=== PATIENT | male | born 1965 | race Caucasian/White ===

== ENCOUNTER → 2020-10-28 13:39 | Outpatient (BNVA) | payer MEDICAID, SELFPAY | PROVIDERS: PCP Family Medicine; Visit Provider Internal Medicine | DX: M86.60 Other chronic osteomyelitis, unspecified site (principal) | CPT/HCPCS: 99212 ==

== ENCOUNTER 2025-05-10 08:10 | Outpatient (REF) | payer MEDICAID, SELFPAY ==
--- OUTSIDE RECORDS SUMMARY | 2025-05-10 08:20 | XMS_ITS | Encounter Summary ---
Author Organization [employer] Address [address] [facility] [address] [place] [address] Care Team Providers Care Magazine Supervisor Name Role Phone Jeremy Mae MD Primary Care Prov ider Reason for Visit * Reason Onset Date Comments Nurse Triage 03/10/2025 Encounter Details Date Type Department Care Team (Late st Contact Info) Description 03/10/2025 Telephone [facility] [address] [place], [place] [phone] Jeremy Mae MD [address] [place] [address] Nurse Triage Social History Tobacco Use Types Packs/Day Years Used Date Smoking Tobacco: Every Day Cigarettes 0.5 35 Smokeless Tobacco: Never Alcohol Use Standard Drinks/Week Comments Never 0 (1 standard drink = 0.6 oz pur e alcohol) Sex and Gender Information Value Date Recorded Sex Assigned at Male 09/24/2022 10:14 AM EDT Legal Sex Male 10:14 AM EDT Gender Identity Male 09/24/2022 10:14 AM EDT Sexual Orientation Choose not to disclose 2021 10:14 AM EDT documented as of this encounter Miscellaneous Notes * Telephone Encounter - Rosemarie Garcia RN - 03/10/2025 12:17 PM EDT Triage call Pt reports left elbow pain for 2 weeks now. Neg for swelling/redness, or rash. Pt denies injury and has not had this before. Pt is unable to bend arm at elbow and can't lift arm to above shoulder. Pt has not taken any thing for pain and is advised to take tylenol which Pt has at home fol lowing bottle direction and try ice/heat to see if effective for relief of pain, also to keep arm supported with pillow at rest. Pt agrees with disposition and home care advised. ASK apt 03/11/25 @ 945am with Dr. Glass. Insurance ia verified as active prior to booking. Protocol Used: Elbow Pain (Adult) Protocol-Based Disposition: See in Office or Video Visit within 3 Days Video visit not offered Positive Triage Questions: * Moderate pain (e.g., interferes with normal activities) and present > 3 days * Patient wants to be seen * All higher-acuity triage questions were negative Care Advice Discussed: * Reassurance and Education - Elbow Pain * Pain Medicines * Pain Medicines - Extra Notes and Warnings * Expected Course * Reasons To Call Back - Moderate pain (such as interferes with normal activities) lasts over 3 days - Mild pain lasts over 7 days - Swollen joint or fever occurs - You become worse * Use a Cold Pack for Pain * Use Heat After 48 Hours for Pain * Telephone Encounter - Ruma Smith - 03/10/2025 11:53 AM EDT Symptom: Elbow Pain - Not From Injury Outcome: Schedule an appointment to be seen within 24 hours Reason: Caller denied all higher acuity questions The caller accepted this outcome. documented in this encounter Plan of Treatment Upcoming Encounters Date Type Department Care Team (Late st Contact Info) Description 07/05/2025 11:15 AM EDT Telemedicine [facility] [address] [place] [address] Jeremy Mae MD [address] [place] [address] documented as of this encounter Visit Diagnoses Not on filedocumented in this encounter Care Teams Magazine Supervisor Relationship Specialty Start Date End Date Jeremy Mae MD [address] [place] [address] PCP - General Internal Medicine 04/04/20 documented as of this encounter
[2025-05-10 14:06] LABS: MANUAL DIFF FLAG NO
[2025-05-10 14:13] LABS: Basophils Percent Auto 0.4 % (0-2); Eosinophils Absolute Auto 0.2 X10*3/uL (0.0-0.4); Eosinophils Percent Auto 2.4 % (0-4); Hematocrit 42.6 % (42.0-52.0); Hemoglobin 14.5 g/dl (14.0-18.0); Imm Gran Abs Auto 0.02 X10*3/uL (0.00-0.03); Imm Gran Pct Auto 0.2 % (0.0-0.4); Lymphocytes Absolute Auto 3.7 X10*3/uL (1.2-4.9); Lymphocytes Percent Auto 38.5 % (20-40); Mean Corpuscular Hemoglobin 30.2 pg (27.0-33.0); Mean Corpuscular Volume 88.8 fL (80.0-98.0); Mean Platelet Volume 9.7 fL (9.4-12.4); Monocytes Absolute Auto 0.6 X10*3/uL (0.1-1.2); Monocytes Percent Auto 6.5 % (2-11); Platelet Count 319 X10*3/uL (160-400); Red Cell Distribution Width 13.7 % (11.0-16.0); White Blood Count 9.6 X10*3/uL (4.8-10.8)
[2025-05-10 14:21] LABS: Estimated Average Glucose 108 mg/dL; Hemoglobin A1c % 5.4 % (<6.0)
[2025-05-10 14:33] LABS: Alanine Aminotransferase 28 U/L (0-40); Albumin Level 4.2 g/dL (3.5-5.0); Alkaline Phosphatase 115 U/L (39-117); Anion Gap 10 (12-20); Aspartate Amino Transferase 26 U/L (5-37); Bilirubin Total 0.3 mg/dL (0.0-1.0); Blood Urea Nitrogen 16 mg/dL (9-16); Calcium 9.5 mg/dL (8.4-10.2); Carbon Dioxide 25 mmol/L (22-29); Chloride 110 mmol/L (96-108); Cholesterol 156 mg/dL (<200); Estimated Glomerular Filt Rate > 60; Glucose Random 93 mg/dL (60-115); HDL Cholesterol 32 mg/dL (>40); LDL Cholesterol Calculated 94 mg/dL (<100); Potassium 4.4 mmol/L (3.3-5.1); Sodium 141 mmol/L (135-145); Total Protein 7.2 g/dL (6.5-8.0); Triglycerides 152 mg/dL (<150)
[2025-05-10 14:49] LABS: TSH reflex Free T4 2.65 uIU/mL (0.32-4.0)
[2025-05-11 03:50] LABS: HIV AB/AG Nonreactive (Nonreactive); HIV Num 1 0.07 S/CO (0.00-0.99); ~Hepatitis C Antibody Nonreactive (Nonreactive)
== END 2025-05-10 08:11 | disposition home or self-care (01) ==
LOC: HO.CHCLDS 08:10
PROVIDERS: Visit Provider Internal Medicine
DX: M86.669 Other chronic osteomyelitis, unspecified tibia and fibula (principal)
CPT/HCPCS: 36415; 80053; 80061; 83036; 84443; 85025; 86803; 87389

== ENCOUNTER 2025-07-05 13:13 | Outpatient (REF) | payer MEDICAID, SELFPAY ==
--- OUTSIDE RECORDS SUMMARY | 2025-07-05 11:15 | XMS_ITS | Encounter Summary ---
Author Organization [employer] Address [address] [facility] [address] [place] [address] Care Team Providers Care Merchandise Processor Name Role Phone Jeremy Mae MD Primary Care Prov ider Encounter Details Date Type Department Care Team ([facility] st Contact Info) Description 07/05/2025 11:15 AM EDT Telemedicine [facility] MED [facility] PEDS [address] [place], [place] [phone] Jeremy Mae MD [address] [place], [place] [phone] Prostate cancer screening (Primary Dx); Lower urinary tract symptoms (LUTS) Social History Tobacco Use Types Packs/Day Years Used Date Smoking Tobacco: Every Day Cigarettes 0.5 35 Smokeless Tobacco: Never Alcohol Use Standard Drinks/Week Comments Never 0 (1 standard drink = 0.6 oz pur e alcohol) Depression Answer Date Recorded Patient Health Questionnaire-9 Score 0 07/05/2025 Patient Health Questionnaire-9 Score 0 07/05/2025 Last PHQ-9: Questionnaire Data Not on file 0 07/05/2025 Depression Answer Date Recorded Patient Health Questionnaire-2 Score 0 07/05/2025 Sex and Gender Information Value Date Recorded Sex Assigned at Male 09/24/2022 10:14 AM EDT Legal Sex Male 10:14 AM EDT Gender Identity Male 09/24/2022 10:14 AM EDT Sexual Orientation Choose not to disclose 2021 10:14 AM EDT documented as of this encounter Functional Status * Over the past 2 weeks, how often have you been bothered by any of the following problems? Question Answer Date of Assessment Author Patient Health Questionnaire-2 Score 0 06/25 11:16 AM Robyn Hill [place] * Little interest or pleasure in doing things Answer Date of Assessment Author Not at all 07/05/2025 11:16 AM Domenico Hill [place] * Feeling down, depressed, or hopeless Answer Date of Assessment Author Not at all 07/05/2025 11:16 AM Domenico Hill [place] * Trouble falling or staying asleep, or sleeping too much Answer Date of Assessment Author Not at all 07/05/2025 11:16 AM Domenico Hill [place] * Feeling tired or having little energy Answer Date of Assessment Author Not at all 07/05/2025 11:16 AM Domenico Hill [place] * Poor appetite or overeating Answer Date of Assessment Author Not at all 07/05/2025 11:16 AM Domenico Hill [place] * Feeling bad about yourself - or that you are a failure or have let yourself or your family down Answer Date of Assessment Author Not at all 07/05/2025 11:16 AM Domenico Hill [place] * Trouble concentrating on things, such as reading the newspaper or watching television Answer Date of Assessment Author Not at all 07/05/2025 11:16 AM Domenico Hill [place] * Moving or speaking so slowly that other people could have noticed? Or the opposite - being so fidgety or restless that you have been moving around a lot more than usual. Answer Date of Assessment Author Not at all 07/05/2025 11:16 AM Domenico Hill [place] * Thoughts that you would be better off or hurting yourself in some way Answer Date of Assessment Author Not at all 07/05/2025 11:16 AM Domenico Hill [place] * Patient Health Questionnaire-9 Score Answer Date of Assessment Author 0 07/05/2025 11:16 AM Domenico Hill [place] documented as of this encounter Progress Notes * Jeremy Gallardo MD - 07/05/2025 11:15 AM EDT Subjective Patient ID: Titus Milligan is a 59 y.o. male who presents for No chief complaint on file.. Difficulty Urinating This is a new problem. The current episode started more than 1 month ago. The patient is experiencing no pain. There has been no fever. Associated symptoms include frequency. Review of Systems Genitourinary: Positive for dysuria and frequency. Objective Physical Exam Neurological: General: No focal deficit present. Mental Status: He is oriented to person, place, and time. Psychiatric: Mood and Affect: Mood normal. Behavior: Behavior normal. Assessment/Plan Problem List Items Addressed This Visit None Visit Diagnoses Prostate cancer screening - Primary Relevant Orders PSA, Total With Reflex to PSA, Free Lower urinary tract symptoms (LUTS) Will check prostate for BPH/cancer and will start on flomax, call back If not improving documented in this encounter Plan of Treatment Scheduled Orders Name Type Priority Associated Diagnoses Orde r Schedule PSA, Total With Reflex to PSA, Free Lab Routine Prostate cancer screening Expected: 07/05/2025 (Approximate), Expires: 07/05/2026 documented as of this encounter Visit Diagnoses Diagnosis Prostate cancer screening- Primary Special screening for malignant neoplasm of prostate Lower urinary tract symptoms (LUTS) documented in this encounter Additional Health Concerns Assessment Noted Time PHQ-9 Depression Total Score: 0 07/05/20 25 11:16 AM EDT documented as of this encounter Care Teams Merchandise Processor Relationship Specialty Start Date End Date Jeremy Mae MD [address] [place] [address] PCP - General Internal Medicine 04/04/20 documented as of this encounter
[2025-07-05 16:06] LABS: PSA,Total (Free>4and<10) 3.49 ng/mL (0.00-4.00)
== END 2025-07-05 13:14 | disposition home or self-care (01) ==
LOC: HO.CHCLDS 13:13
PROVIDERS: Visit Provider Internal Medicine
DX: Z12.5 Encounter for screening for malignant neoplasm of prostate (principal)
CPT/HCPCS: 36415; 84153

== ENCOUNTER 2025-07-12 15:10 | Outpatient (AMB) | payer MEDICAID, SELFPAY ==
[2025-07-12 15:37] VITALS: PULSE 88; O2SAT 99
--- NOTE | 2025-07-12 15:37 | A.OFFVIS_ITS ---
Vital Signs 3 07/12/25 15:37 Weight 179 lb Pulse 88 Pulse Source Pulse Oximeter Pulse Oximetry (%) 99 Oxygen Delivery Method Room Air Intake Visit Reasons: [facility] reff/ok per osteomyelitis Professor Of Art History Required: Yes Professor Of Art History Services: Professor Of Art History Present Professor Of Art History Name: lisa martino CMA Allergies No Known Allergies (No Known Allergies*) Allergy (Verified 07/12/25 15:37) HPI HPI [facility] reff/ok per osteomyelitis: Details: I had seen him in 2019. He has chronic OM left leg. He has no leakage on Cipro and my last script was 2019.He has been getting Dr Turner. [facility] Medical History Nicotine dependence, cigarettes, uncomplicated Chronic osteomyelitis (~1992) Surgical History History of lithotripsy Review of Systems Const All systems reviewed & are unremarkable except as noted in HPI and below Physical Exam Vital Signs: Last Vital Signs Pulse 88 07/12/25 15:37 Pulse Ox 99 07/12/25 15:37 Oxygen Delivery Method Room Air 07/12/25 15:37 Const Other: General: cooperative Orientation/consciousness: patient oriented x3 HEENT Head: Yes normal to inspection Mouth: Normal oral and palatal mucosa present Eyes General: appearance normal, both eyes and all related structures Pupils: Equal, round and reactive pupils present Resp Effort & Inspection: normal respiratory effort Cardio Rate: regular rate Rhythm: regular rhythm GI Palpation (GI): Soft to palpation and nontender General: Yes no CVA tenderness Back/Spine/Pelvis Back: no CVA tenderness Skin General skin exam: no rashes or lesions noted Neuro General: patient oriented x3 Cranial nerves: Yes CN's II-XII intact bilaterally and Yes Equal, round and reactive pupils present Extrem General: Yes normal to inspection Psych Appearance: grossly normal Assessment & Plan Assessment & Plan (1) Chronic osteomyelitis: Onset Date: ~1992 Comment: 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 Code(s): M86.60 - Other chronic osteomyelitis, unspecified site Category: Medical Plan: One year supply, 90 day and three refill. See in one year. Medications: New 2 ciprofloxacin HCl (Cipro) 500 mg PO DAILY 90 tabs 3RF 90 days Coding Level of Care Code Est Pt Level 3 (40853) Diagnoses Chronic osteomyelitis M86.60
--- OUTSIDE RECORDS SUMMARY | 2025-07-12 15:45 | XMS_ITS | Encounter Summary ---
Author Organization [employer] Address [address] [facility] 7t [place] [address] Care Team Providers Care Automation Tender Name Role Phone Jeremy Mae MD Primary Care Prov ider Reason for Visit * Reason Onset Date Comments Nurse Triage 03/10/2025 Encounter Details Date Type Department Care Team (Late st Contact Info) Description 03/10/[address] [facility] MED & PEDS [address] [place], [place] [phone] Jeremy Mae MD [address] [place] [address] Nurse Triage Social History Tobacco Use Types [...] documented in this encounter Plan of Treatment Not on file documented as of this encounter Visit Diagnoses Not on filedocumented in this encounter Care Teams Automation Tender Relationship Specialty Start Date End Date Jeremy Mae MD [address] [place] [id number] PCP - General Internal Medicine 04/04/20 documented as of this encounter
== END 2025-07-12 16:25 | disposition home or self-care (01) ==
LOC: HO.HID 15:10
PROVIDERS: PCP Family Medicine; Visit Provider Internal Medicine
DX: M86.60 Other chronic osteomyelitis, unspecified site (principal)
CPT/HCPCS: 99213

== ENCOUNTER → 2025-07-12 | Outpatient (BNVA) | payer MEDICAID, SELFPAY | PROVIDERS: PCP Family Medicine; Visit Provider Internal Medicine | DX: M86.662 Other chronic osteomyelitis, left tibia and fibula (principal); B96.5 Pseudomonas (aeruginosa) (mallei) (pseudomallei) as the cause of diseases classified elsewhere; Z79.2 Long term (current) use of antibiotics | CPT/HCPCS: 99212 ==

== ENCOUNTER 2025-08-25 11:39 | Outpatient (REF) | payer MEDICAID, SELFPAY ==
--- NOTE | ~2025-08-25 | XR_ITS ---
EXAMINATION: XR ABDOMEN 1 VIEW (KUB) HISTORY: constipation COMPARISON: There are no prior studies available for comparison. FINDINGS: Two supine views of the abdomen are submitted. The bowel gas pattern is unremarkable, without evidence of mechanical obstruction. There is a moderate amount of stool throughout the colon. There is a 3 mm calcification overlying the lower pole of the left renal shadow. There are no abnormal soft tissue masses. The patient is status post internal fixation of the left hip. There is bilateral hip joint space narrowing. XR/XR KUB IMPRESSION: Moderate amount of stool throughout the colon. Electronically signed by: Zohaib Rodriguez MD 08/25/2025 12:25 PM EDT
--- OUTSIDE RECORDS SUMMARY | 2025-08-25 10:45 | XMS_ITS | Encounter Summary ---
Author Organization [employer] Address [address] [facility] 7 [place] [address] Care Team Providers Care Solar Energy Specialist Name Role Phone Jeremy Mae MD Primary Care Prov ider Reason for Visit * Reason Comments Constipation Abdominal Pain Encounter Details Date Type Department Care Team ([facility] Contact Info) Description 08/25/2025 10:45 AM EDT Office Visit [facility] MED & PEDS [address] [place], [place] [phone] Chandrakant Glass MD [address] [place] [address] Other constipation (Primary Dx); Other hemorrhoids; Herpes zoster without complication Social History Tobacco Use Types Packs/Day Years [...] AM EDT documented as of this encounter Last Filed Vital Signs Vital Sign Reading Time Taken Comments Blood Pressure 132/81 08/25/2025 10:41 AM EDT Pulse 58 08/25/2025 10:41 AM EDT Temperature - - Respiratory Rate 20 08/25/2025 10:41 AM EDT Oxygen Saturation 99% 08/25/2025 10:41 AM EDT Inhaled Oxygen Concentration - - Weight 79.4 kg (175 lb) 08/25/2025 10:41 AM EDT Height 170.2 cm (5' 7 ) 08/25/2025 10:41 AM EDT Body Mass Index 27.41 08/25/2025 10:41 AM EDT documented in this encounter Progress Notes * Chandrakant Glass MD - 08/25/2025 10:45 AM EDT MARIA A Milligan is a 59 y.o. male who presents for Constipation and Abdominal Pain. Constipation This is a new problem. The current episode started 1 to 4 weeks ago. The problem has been waxing and waning since onset. His stool frequency is 4 to 5 times per week. The stool is described as blood coated. The patient is not on a high fiber diet. He Does not exercise regularly. There has Not been adequate water intake. Associated symptoms include abdominal pain, hemorrhoids and weight loss. Perti nent negatives include no anorexia, back pain, bloating, diarrhea, difficulty urinating, fecal incontinence, fever, flatus, hematochezia, melena, nausea, rectal pain or vomiting. He has tried nothingfor the symptoms. There is no history of abdominal surgery, endocrine disease, inflammatory bowel disease, irritable bowel syndrome, neurologic disease, neuromuscular disease, psychiatric history or radiation treatment. Abdominal Pain This is a new problem. The current episode started 1 to 4 weeks ago. The problem occurs intermittently. The pain is located in the LUQ and LLQ. The pain is at a severity of 4/10. The quality of the pain is colicky. The abdominal pain does not radiate. Associated symptoms include constipation and weight loss. Pertinent negatives include no anorexia, arthralgias, belching, diarrhea, fever, flatus, h ematochezia, melena, nausea or vomiting. The pain is aggravated by eating. The pain is relieved by Bowel movements. There is no history of abdominal surgery or irritable bowel syndrome. 2 weeks history of left upper quadrant and left lower quadrant abdominal pain. No associated fever.Patient eats pizza quite often which triggers the pain. Skin rash of the right buttock for over a week Problem List[1] Allergies[2] Medications Ordered Prior to Encounter[3] Review of Systems Constitutional: Positive for weight loss. Negative for fever. Gastrointestinal: Positive for abdominal pain, constipation and hemorrhoids. Negative for anorexia,bloating, diarrhea, flatus, hematochezia, melena, nausea, rectal pain and vomiting. Genitourinary: Negative for difficulty urinating. Musculoskeletal: Negative for arthralgias and back pain. OBJECTIVE Vitals: 08/25/25 1041 BP: 132/81 BP Location: Left arm Patient Position: Sitting BP Cuff Size: Adult Pulse: 58 Resp: 20 SpO2: 99% Weight: 175 lb (79.4 kg) Height: 5' 7 (1.702 m) Physical Exam Constitutional: General: He is not in acute distress. Appearance: Normal appearance. He is not ill-appearing, toxic-appearing or diaphoretic. Cardiovascular: Rate and Rhythm: Normal rate. Pulmonary: Effort: Pulmonary effort is normal. Abdominal: Palpations: Abdomen is soft. Tenderness: There is abdominal tenderness. Skin: Comments: 1) External hemorrhoid at 4 O'clock 2) erythematous patches w/ multiple small erosions by normal skin of the right buttock. Neurological: General: No focal deficit present. Mental Status: He is alert. Assessment/Plan Assessment/Plan Diagnoses and all orders for this visit: Other constipation Comments: Increase fluid intake High-fiber diet MiraLAX X-ray ordered. Patient will be called with results. Orders: - XR KUB and Upright 2 Views; Future - polyethylene glycol, PEG, 3350 (Miralax) 17 g packet; Take 17 g by mouth Once per day for 3 days. Other hemorrhoids Comments: Sitz bath Anusol as directed Orders: - hydrocortisone (Anusol-HC) 2.5 % rectal cream; Insert into the rectum 2 times daily. Herpes zoster without complication - mupirocin (Bactroban) 2 % ointment; Apply topically 3 times daily for 10 days. [1] Patient Active Problem List Diagnosis Chronic osteomyelitis of tibia (CMS/HCC) (HCC) Smoking Screening for colon cancer Screening for prostate cancer Encounter for screening for lung cancer Lateral epicondylitis of right elbow Encounter for smoking cessation counseling Seborrheic dermatitis [2] No Known Allergies [3] Current Outpatient Medications on File Prior to Visit Medication Sig Dispense Refill Acetaminophen 500 MG capsule Take 2 capsules by mouth every 8 (eight) hours if needed. ketoconazole (NIZOral) 2 % shampoo Apply topically 2 (two) times a week. 120 mL 3 meloxicam (Mobic) 15 MG tablet Take 1 tablet (15 mg) by mouth Once per day. 30 tablet 1 tamsulosin (Flomax) 0.4 MG 24 hr capsule Take 1 capsule (0.4 mg) by mouth Once per day. 30 capsule 2 varenicline (Chantix) 1 MG tablet Take 1 tablet (1 mg) by mouth 2 times daily. Take with full glassof water. 120 tablet 0 No current facility-administered medications on file prior to visit. documented in this encounter Plan of Treatment Not on file documented as of this encounter Procedures Procedure Name Priority Date/Time Associated Diagnosis Comments XR KUB AND UPRIGHT 2 VIEWS Routine 08/25/2025 12:02 PM EDT Other constipation documented in this encounter Results * XR KUB and Upright 2 Views (08/25/2025 12:02 PM EDT) Anatomical Region Laterality Modality Radiographic Puja ging 08/25/2025 12:0 2 PM EDT Narrative 08/25/2025 12:27 PM EDT [place] [address] XRay Report Signed Patient: Titus Milligan MR#: [id number] : 1965 Acct:[id number] Age/Sex: 59 / M ADM Date: 08/25/25 Loc: [facility] Attending Dr: Chandrakant Glass MD Ordering Physician: Chandrakant Glass MD Date of Service: 08/25/25 Procedure(s): XR KUB Accession Number(s): [id number] cc: Chandrakant Glass MD; Jeremy Mae MD Reason for Exam: constipation EXAMINATION: XR ABDOMEN 1 VIEW (KUB) HISTORY: constipation COMPARISON: There are no prior studies available for comparison. FINDINGS: Two supine views of the abdomen are submitted. The bowel gas pattern is unremarkable, without evidence of mechanical obstruction. There is a moderate amount of stool throughout the colon. There is a 3 mm calcification overlying the lower pole of the left renal shadow. There are no abnormal soft tissue masses. The patient is status post internal fixation of the left hip. There is bilateral hip joint space narrowing. XR/XR KUB IMPRESSION: Moderate amount of stool throughout the colon. Electronically signed by: Zohaib Rodriguez MD 08/25/2025 12:25 PM EDT RP Dictated By: Zohaib Rodriguez MD Signed By: <Electronically signed by Zohaib Rodriguez MD in OV> 08/25/25 1225 DD/ 1202 TD/TT: 08/25/25 1206 Manager Utilization: Procedure Note Donotuseinterpreter, Image - 08/25/2025 [place] [address] XRay Report Signed Patient: Titus Milligan AMR#: [id number] : 1965Acct:[id number] Age/Sex: 59 / MADM Date: 08/25/25 Loc: [facility] Attending Dr: Chandrakant Glass MD Ordering Physician: Chandrakant Glass MD Date of Service: 08/25/25 Procedure(s): XR KUB Accession Number(s): [id number] cc: Chandrakant Glass MD; Jeremy Mae MD Reason for Exam: constipation EXAMINATION: XR ABDOMEN 1 VIEW (KUB) HISTORY: constipation COMPARISON: There are no prior studies available for comparison. FINDINGS: Two supine views of the abdomen are submitted. The bowel gas pattern is unremarkable, without evidence of mechanical obstruction. There is a moderate amount of stool throughout the colon. There is a 3 mm calcification overlying the lower pole of the left renal shadow. There are no abnormal soft tissue masses. The patient is status post internal fixation of the left hip. There is bilateral hip joint space narrowing. XR/XR KUB IMPRESSION: Moderate amount of stool throughout the colon. Electronically signed by: Zohaib Rodriguez MD 08/25/2025 12:25 PM EDT RP Dictated By: Zohaib Rodriguez MD Signed By: <Electronically signed by Zohaib Rodriguez MD in OV> 08/25/25 1225 DD/ 1202 TD/TT: 08/25/25 1206 Manager Utilization: us Chandrakant Glass MD IMG XR PROCEDURES Final Res ult documented in this encounter Visit Diagnoses Diagnosis Other constipation- Primary Other hemorrhoids Herpes zoster without complication documented in this encounter Additional Health Concerns Assessment Noted Time PHQ-9 Depression Total Score: 0 07/05/20 25 11:16 AM EDT documented as of this encounter Care Teams Solar Energy Specialist Relationship Specialty Start Date End Date Jeremy Mae MD [address] [place] [id number] PCP - General Internal Medicine 04/04/20 documented as of this encounter
--- OUTSIDE RECORDS SUMMARY | 2025-08-25 13:14 | XMS_ITS | Clinical Summary ---
Author Organization [employer] Address [address] [facility] 7[address] [place] [address] Care Team Providers Care Specialty Trimmer Name Role Phone Jeremy Mae MD Primary Care Prov ider Allergies No known active allergies Medications Acetaminophen 500 MG capsule Take 2 capsules by mouth every 8 (eight) hours if needed. 1 Active meloxicam (Mobic) 15 MG tabletIndications: Lateral epicondylitis of right elbow Take 1 tablet (15 mg) by mouth Once per day. 30 tablet 1 5 03/11/20 26 Active varenicline (Chantix) 1 MG tablet Take 1 tablet (1 mg) by mouth 2 times daily. Take with full glass of water. 120 tablet 5 Active ketoconazole (NIZOral) 2 % shampoo Apply topically 2 (two) times a week. 120 mL 3 5 Active tamsulosin (Flomax) 0.4 MG 24 hr capsule Take 1 capsule (0.4 mg) by mouth Once per day. 30 capsule 2 5 Active polyethylene glycol, PEG, 3350 (Miralax) 17 g packetIndications: Other constipation Take 17 g by mouth Once per day for 3 days. 3 packet 5 08/28/20 25 Active hydrocortisone (Anusol-HC) 2.5 % rectal creamIndications:O ther hemorrhoids Insert into the rectum 2 times daily. 28 g 5 Active mupirocin (Bactroban) 2 % ointmentIndication s:Herpes zoster without complication Apply topically 3 times daily for 10 days. 22 g 5 09/04/20 25 Active Active Problems Problem Noted Date Diagnosed Date Lateral epicondylitis of right elbow 05/04/2025 Assessment & Plan (05/04/2025 6:09 PM EDT): Will refer to ortho for evaluation, not improved with previous remedies Encounter for smoking cessation counseling 05/04 Assessment & Plan (05/04/2025 6:11 PM EDT): Will start on chantix, encouraged smoking cessation, follow up in 2-3 months Seborrheic dermatitis 05/04/2025 Assessment & Plan (05/04/2025 6:14 PM EDT): Will start on ketoconazole shampoo, call back if not improving Encounter for screening for lung cancer 12/23/19 24 Assessment & Plan (12/23/2023 1:47 PM EST): Will place referral for LDCT lung cancer screening, >25 pack year hx Smoking 12/11/2022 Assessment & Plan (12/11/2022 12:19 PM EST): Will refer for lung cancer screening Screening for colon cancer 12/11/2022 Assessment & Plan (12/23/2023 1:48 PM EST): Patient prefers now cologuard test, risk vs benefits were discussed Assessment & Plan (12/11/2022 12:20 PM EST): Will refer for colonoscopy Screening for prostate cancer 12/11/2022 Chronic osteomyelitis of tibia ([facility]/HCC) 019 Assessment & Plan (07/29/2024 2:01 PM EDT): Patient refers he is following ID, there is no documents on chart, will renew ciprofloxacin, no acute changes Assessment & Plan (12/23/2023 1:47 PM EST): Will renew cipro, patient has not followed up with ID, Assessment & Plan (07/12/2023 10:16 AM EDT): Not draining, no swelling, no erythema, will renew ciprofloxacin, and will refer to ID for evaluation Assessment & Plan (12/11/2022 12:19 PM EST): Patient has follow up with ID on February, will renew cipro as suppressive therapy. Encounters Date Type Department Care Team Description 08/25/2025 10:45 AM EDT Office Visit [facility] [address] [place] [address] Chandrakant Glass MD Other constipation (Primary Dx); Other hemorrhoids; Herpes zoster without complication 08/25/2025 Travel 08/23/2025 Telephone [facility] [address] [place] [address] Jeremy Mae MD Nurse Triage 07/29/2025 Telephone [facility] [address] [place] [address] Jeremy Mae MD 07/05/2025 11:15 AM EDT Telemedicine [facility] [address] [place] [address] Jeremy Mae MD Prostate cancer screening (Primary Dx); Lower urinary tract symptoms (LUTS) 07/05/2025 Telephone [facility] [address] [place] [address] Jeremy Mae MD 07/05/2025 Travel 06/28/2025 Telephone [facility] [address] [place] [address] Jeremy Mae MD Referral from Last 3 Months Immunizations Immunization Administration Dates Next Due Influenza injectable quadriv alent IIV4 with preservative 01/24/2018,09/02/2015 Influenza, Split (incl. purified surface antigen ) 08/22/2012 Pneumococcal Polysaccharide PPSV23 01/24/2018 Tdap 06/30/2015 Social History Tobacco Use Types Packs/Day Years Used Date Smoking Tobacco: Every Day Cigarettes 0.5 35 Smokeless Tobacco: Never Tobacco Cessation:Ready to Q uit: Not Asked; Counseling Given: Not Answered Alcohol Use Standard Drinks/Week Comments Never 0 [...] not to disclose 2021 10:14 AM EDT Last Filed Vital Signs Vital Sign Reading Time Taken Comments Blood Pressure 132/81 08/25/2025 10:41 AM EDT Pulse 58 08/25/2025 10:41 AM EDT Temperature 36.8 C (98.2 F) 05/04/2025 3:36 PM EDT Respiratory Rate 20 08/25/2025 10:41 AM EDT Oxygen Saturation 99% 08/25/2025 10:41 AM EDT Inhaled Oxygen Concentration - - Weight 79.4 kg (175 lb) 08/25/2025 10:41 AM EDT Height 170.2 cm (5' 7 ) 08/25/2025 10:41 AM EDT Body Mass Index 27.41 08/25/2025 10:41 AM EDT Plan of Treatment Health Maintenance Due Date Last Done Comments CT Colonography 1966 Colonoscopy 1966 FIT 1966 SDOH Screening 1966 Sigmoidoscopy 1966 Disability Screening 1966 Alcohol/Substance Use Screening 1978 Hepatitis B Vaccines (1 of 3 - 19+ 3-dose series) 1985 Zoster Vaccines (1 of 2) 2016 Pneumococcal Vaccine: 50+ Years (2 of 2 - PCV) 01/24/2019 01/24/2018 DTaP/Tdap/Td Vaccines (2 - T d or Tdap) 06/30/2025 06/30/2015 COVID-19 Vaccine (1 - 2023-2 5 season) 2025 Influenza Vaccine (#1) 2025 8, 09/02/2015, 08/22/2012 FOBT 06/16/2026 06/16/2025 Depression Screening 07/05/2026 07/05/2025, 07/05/2025 Tobacco Screening 08/25/2026 08/25/2025 Colorectal Cancer Screening 06/16/2028 FIT DNA/Cologuard 06/16/2028 06/16/2025 Lipid Panel 05/10/2030 05/10/2025 RSV Patients and Patients Aged 60 years or older (1 - 1-dose 75+ series) 2041 HIV Screening Completed 05/10/2025 Hepatitis C Screening Completed 05/10/2025 HIB Vaccines Aged Out No longer eligi ble based on patient's age to complete this topic HPV Vaccines Aged Out No longer eligi ble based on patient's age to complete this topic Hepatitis A Vaccines Aged Out No long er eligible based on patient's age to complete this topic IPV Vaccines Aged Out No longer eligi ble based on patient's age to complete this topic Meningococcal B Vaccine Aged Out No l onger eligible based on patient's age to complete this topic Meningococcal Vaccine Aged Out No claudia lobito eligible based on patient's age to complete this topic RSV under 20 months Aged Out No longe r eligible based on patient's age to complete this topic Rotavirus Vaccines Aged Out No longer eligible based on patient's age to complete this topic Procedures Procedure Name Priority Date/Time Associated Diagnosis Comments XR KUB AND UPRIGHT 2 VIEWS Routine 08/25/2025 12:02 PM EDT Other constipation PSA, TOTAL WITH REFLEX TO PSA, FREE Routine 07/05/2025 1:14 PM EDT Prostate cancer screening LAB COLOGUARD COLON CANCER SCREEN Routine 06/16/2025 9:00 AM EDT Screening for colon cancer HEPATITIS C AB W/REFL TO HCV RNA, QN, PCR Routine 05/10/2025 8:11 AM EDT Chronic osteomyelitis of tibia (CMS/HCC) HIV 1/2 ANTIGEN/ANTIBODY, FOURTH GENERATION W/RFL Routine 05/10/2025 8:11 AM EDT Chronic osteomyelitis of tibia (CMS/HCC) LIPID PANEL, STANDARD Routine 05/10/2025 8:11 AM EDT Chronic osteomyelitis of tibia (CMS/HCC) from Last 3 Months or Most Recently Relevant to Health Maintenance Results * XR KUB and Upright 2 Views (08/25/2025 12:02 PM EDT) Anatomical Region Laterality Modality Radiographic Puja ging 08/25/2025 12:0 2 PM EDT Narrative 08/25/2025 12:27 PM EDT [address] [address] XRay Report Signed Patient: Titus Milligan MR#: [id number] : 1965 Acct:[id number] Age/Sex: 59 / M ADM Date: 08/25/25 Loc: HO.XRAY Attending Dr: Chandrakant Glass MD Ordering Physician: Chandrakant Glass MD Date of Service: 08/25/25 Procedure(s): XR KUB Accession Number(s): [id number] cc: Chandrakant Glass MD; Jeremy Mae MD [...] Zohaib Rodriguez MD 08/25/2025 12:25 PM EDT Dictated By: Zohaib Rodriguez MD Signed By: <Electronically signed by Zohaib Rodriguez MD in OV> 08/25/25 1225 DD/ 1202 TD/TT: 08/25/25 1206 Enterprise Sales Person: Procedure Note Donotuseinterpreter, Image - 08/25/[address] [address] XRay Report Signed Patient: Titus Milligan AMR#: [id number] : 1965Acct:[id number] Age/Sex: 59 / MADM Date: 08/25/25 Loc: HO.XRAY Attending Dr: Chandrakant Glass MD Ordering Physician: Chandrakant Glass MD Date of Service: 08/25/25 Procedure(s): XR KUB Accession Number(s): [id number] cc: Chandrakant Glass MD; Jeremy Mae MD [...] 08/25/25 1225 DD/ 1202 TD/TT: 08/25/25 1206 Enterprise Sales Person: us Chandrakant Glass MD IMG XR PROCEDURES Final Res ult * PSA, Total With Reflex to PSA, Free (07/05/2025 1:14 PM EDT) PSA,Total (Free>4and<10) 3.49 0.00 - 4.00 ng/mL [facility] Comment:A Free PSA was not p erformed: The percentage of Free PSA can be used to enhance the differentiation of prostate cancer from benign prostatic disease in subjects whose PSA levels are between 4.0 and 10.0 ng/mL. For subjects whose PSA levels are below 4.0 or above 10.0 ng/mL, the risk of prostate cancer is determined on the basis of the PSA alone. Therefore the % Free PSA is recommended only for those subjects whose PSA levels are between 4.0 and 10.0 ng/mL.PSA methodology: Flores Alinity i ChemiluminescentMicroparticle Immunoassay (CMIA) 07/05/2025 1:14 PM EDT 07/05/2025 2:22 PM EDT Jeremy Gallardo MD LAB BLOOD ORDERABL ES Final Result [facility] [address] [place] [phone] * Cologuard?? colon cancer screening (06/16/2025 9:00 AM EDT) Pathologist [facility] Cologuard Result Negative Negative 06/23/20 3:30 PM EDT [facility] (CLIA #:[id number]) Comment: The Cologuard (TM) test was performed on this specimen. NEGATIVE TEST RESULT. A negative Cologuard result indicates a low likelihood that a colorectal cancer (CRC) or advanced adenoma (adenomatous polyps with more advanced pre-malignant features) is present. The chance that a person with a negative Cologuard test has a colorectal cancer is less than 1 in 1500 (negative predictive value >99.9%) or has an advanced adenoma is less than 5.3% (negative predictive value 94.7%). These data are based on a prospective cross-sectional study of 10,000 individuals at average risk for colorectal cancer who were screened with both Cologuard and colonoscopy. (Sharon Ge al, N Engl J Med 2014;370(14):1286- 1297) The normal value (reference range) for this assay is negative. COLOGUARD RE-SCREENING RECOMMENDATION: Periodic colorectal cancer screening is an important part of preventive healthcare for asymptomatic individuals at average risk for colorectal cancer. Following a negative Cologuard result, the British Cancer Society and U.S. Multi-Society Task Force screening guidelines recommend a Cologuard re-screening interval of 3 years. References: British Cancer Society Guideline for Colorectal Cancer Screening: https://www.cancer.org/cancer/xdypx-uctriu-czvxmp/bvahlrgpw-prtxrffyl-fvdxhbz/ac s-rec ommendations.html.; Earle DK, Khushboo CR, Rut BatesK, Colorectal Cancer Screening: Recommendations for Physicians and Patients from the U.S. Multi-Society Task Force on Colorectal Cancer Screening , Am J Gastroenterology 2017; 112:7091-6361. TEST DESCRIPTION: Composite algorithmic analysis of stool DNA-biomarkers with hemoglobin immunoassay. Quantitative values of individual biomarkers are not reportable and are not associated with individual biomarker result reference ranges. Cologuard is intended for colorectal cancer screening of adults of either sex, 45 years or older, who are at average-risk for colorectal cancer (CRC). Cologuard has been approved for use by the U.S. FDA. The performance of Cologuard was established in a cross sectional study of average-risk adults aged 50-84. Cologuard performance in patients ages 45 to 49 years was estimated by sub-group analysis of near-age groups. Colonoscopies performed for a positive result may find as the most clinically significant lesion: colorectal cancer [4.0%], advanced adenoma (including sessile serrated polyps greater than or equal to 1cm diameter) [20%] or non- advanced adenoma [31%]; or no colorectal neoplasia [45%]. These estimates are derived from a prospective cross-sectional screening study of 10,000 individuals at average risk for colorectal cancer who were screened with both Cologuard and colonoscopy. (Sharon Ge al, N Engl J Med 2014;370(14):7282-7030.) Cologuard may produce a false negative or false positive result (no colorectal cancer or precancerous polyp present at colonoscopy follow up). A negative Cologuard test result does not guarantee the absence of CRC or advanced adenoma (pre-cancer). The current Cologuard screening interval is every 3 years. (British Cancer Society and U.S. Multi-Society Task Force). Cologuard performance data in a 10,000 patient pivotal study using colonoscopy as the reference method can be accessed at the following location: www.[employer]/results. Additional description of the Cologuard test process, warnings and precautions can be found at www.[employer]. Stool specimen (specimen) 06/16/2025 9:00 AM EDT 06/17/2025 10:06 AM EDT Jeremy Gallardo MD LAB MOLECULAR DIAG NOSTICS ORDERABLES Final Result Performing Organization Address [facility] Co de Phone Number [facility] (CLIA #:[id number]) [address] [place] [address], * Hepatitis C Antibody with Reflex to HCV, RNA, Quantitative, Real-Time PCR (05/10/2025 8:11 AM EDT) Hepatitis C Antibody Nonreactive Nonreactive [facility] Comment:Antibodies to HCV no t detected; does not exclude early acuteHCV infection. Blood Venous blood specimen / Unknown 05/10/2025 8:11 AM EDT 05/10/2025 2:01 PM EDT Jeremy Gallardo MD LAB BLOOD ORDERABL ES Final Result Performing Organization Address [facility] Co de Phone Number [facility] [address] [place] [phone] * HIV-1/2 Antigen and Antibodies, Fourth Generation, with Reflexes (05/10/2025 8:11 AM EDT) HIV AB/AG Nonreactive Nonreactive [facility] Comment:HIV-1 p24 Ag and/or HIV-1/HIV-2 Ab not detected.A test result that is nonreactive does not exclude thepossibility of exposure to or infection with HIV-1 and/orHIV-2. Nonreactive results in this assay for individualswith prior exposure to HIV-1 and/or HIV-2 may be due toantigen and antibody levels that are below the limit ofdetection of this assay.The [employer] Everywhere HIV Ag/Ab Combo assay result andsupplemental assay results should be interpreted inconjunction with the patient's clinical presentation,history and other laboratory results. If the results areinconsistent with clinical evidence, additional testing issuggested to confirm the result. Blood Venous blood specimen / Unknown 05/10/2025 8:11 AM EDT 05/10/2025 2:01 PM EDT us Jeremy Gallardo MD LAB BLOOD ORDERABL ES Final Result [facility] [address] [place] [phone] * (ABNORMAL) Lipid Panel, Standard (05/10/2025 8:11 AM EDT) Triglycerides 152(H) <150 mg/dL [facility] Comment:Desirable Triglyceri de: less than 150 mg/dLBorderline High Triglyceride 150-199 mg/dLHigh Triglyceride: 200-499 mg/dLVery High Triglyceride: greater than or equal to 5OO mg/dL Cholesterol 156 <200 mg/dL [facility] Comment:Desirable Cholestero l: less than 200 mg/dLBorderline High Cholesterol: 200-239 mg/dLHigh Cholesterol: greater than 239 mg/dL LDL Cholesterol Calculated 94 <100 mg/dL [facility] Comment:Desirable LDL: less than 100 mg/dLNear Optimal/Above Optimal LDL: 110- 129 mg/dLBorderline High LDL: 130-159 mg/dLHigh LDL: 160-189 mg/dLVery High LDL: greater than or equal to 190 mg/dL HDL Cholesterol 32(L) >40 mg/dL [facility] Comment:Desirable HDL: great er than 40 mg/dL Note: This HDL assay may give artificially low results in patients with liver disease. Blood Venous blood specimen / Unknown 05/10/2025 8:11 AM EDT 05/10/2025 2:05 PM EDT us Jeremy Gallardo MD LAB BLOOD ORDERABL ES Final Result [facility] [address] [place] [phone] from Last 3 Months or Most Recently Relevant to Health Maintenance Insurance C3 Care Teams Specialty Trimmer Relationship Specialty Start Date End Date Jeremy Mae MD [address] [place] [phone] PCP - General Internal Medicine 04/04/20
--- OUTSIDE RECORDS SUMMARY | 2025-08-25 13:14 | XMS_ITS | Encounter Summary ---
Author Organization [employer] Address [address] [place] [address] [address] [place] [address] Care Team Providers Care Sow Farm Barn Technician Name Role Phone Jeremy Mae MD Primary Care Prov ider Reason for Visit * Reason Onset Date Comments Nurse Triage 08/23/2025 Encounter Details Date Type Department Care Team ([facility] st Contact Info) Description 08/23/2025 Telephone [facility] PEDS [address] [place], [place] [phone] Jeremy Mae MD [address] [place] [address] Nurse Triage Social History Tobacco Use Types [...] encounter Miscellaneous Notes * Telephone Encounter - Yamini Phillips RN - 08/24/2025 4:09 PM EDT Incoming call from Titus Powell regarding below. Pt reports having pain after meals. Symptoms onset x5 days. Pt denies any N/v or diarrhea. Pt states has been using tums with minimal relief. Per pt pain only happens after meals. Having some bloating. Pt advised of disposition, agrees to sick onsite with team provider tomorrow. Reviewed home care advise, ER precautions and reasons to call back. Protocol Used: Abdominal Pain - Male (Adult) Protocol-Based Disposition: See in Office or Video Visit Today or Tomorrow Future Appointments Date Time Provider Department Center 08/25/2025 10:45 AM Chandrakant Glass MD [facility] Insurance verified as active per Real Time Eligibility in [facility]. Positive Triage Question: * Mild pain (e.g., does not interfere with normal activities) and pain comes and goes (cramps) lasts > 48 hours (Exception: This same abdominal pain is a chronic symptom recurrent or ongoing AND present > 4 weeks.) * All higher-acuity triage questions were negative Care Advice Discussed: * Reassurance and Education - Stomach Pain * Rest * Drink Clear Fluids * Diet * Reasons To Call Back - Severe pain lasts over 1 hour - You become worse * Telephone Encounter - Kenzie Frost RN - 08/23/2025 11:24 AM EDT Called pt. [facility] budget and policy analyst [phone] [address]. No answer. Pad Machine Feeder left message on pt. Voicemail to please call back nurse at [facility] at [phone] or if this is an emergency to please dial 911 or go to the nearest ED. Pad Machine Feeder called back x2. No answer. RE: Abdominal pain- severe now. * Telephone Encounter - Jeff Mcfadden - 08/23/2025 11:22 AM EDT Symptom: Abdominal Pain - Male Outcome: Talk to a nurse or provider within 15 minutes Reason: Severe pain now The caller accepted this outcome. Contact pt at [phone] (slovak) documented in this encounter Plan of Treatment Not on file documented as of this encounter Visit Diagnoses Not on filedocumented in this encounter Additional Health Concerns Assessment Noted Time PHQ-9 Depression Total Score: 0 07/05/20 25 11:16 AM EDT documented as of this encounter Care Teams Sow Farm Barn Technician Relationship Specialty Start Date End Date Jeremy Mae MD [address] [place] [phone] PCP - General Internal Medicine 04/04/20 documented as of this encounter
--- OUTSIDE RECORDS SUMMARY | 2025-08-25 13:14 | XMS_ITS | Encounter Summary ---
Author Organization [employer] Address [address] [facility] 7 [place] [address] Care Team Providers Care Head Paper Tester Name Role Phone Jeremy Mae MD Primary Care Prov ider Reason for Visit * Reason Onset Date Comments Letter for School/Work 07/30/2024 Encounter Details Date Type Department Care Team ([facility] st Contact Info) Description 07/30/2024 Telephone [facility] MED & PEDS [address] [place], [place] [phone] Jeremy Mae MD [address] [place] [address] Letter for School/Work Social History Tobacco Use Types Packs/Day Years [...] encounter Miscellaneous Notes * Telephone Encounter - Hui Silva - 08/03/2024 10:31 AM EDT Tc from pt requesting a call back. Please see notes. * Telephone Encounter - Ruma Smith - 07/31/2024 1:29 PM EDT Tc from pt requesting states on letter request. * Telephone Encounter - Ruma Smith - 07/30/2024 12:35 PM EDT Tc from pt calling to inform had a visit with pcp yesterday and had requested a letter and was toldhe will be able to pick it up today . I did not see any resent letter on file . Please call pt to clarify. documented in this encounter Plan of Treatment Not on file documented as of this encounter Visit Diagnoses Not on filedocumented in this encounter Care Teams Head Paper Tester Relationship Specialty Start Date End Date HernandezJeremy Ceballos MD [address] [place] [phone] PCP - General Internal Medicine 04/04/20 documented as of this encounter
--- OUTSIDE RECORDS SUMMARY | 2025-08-25 13:14 | XMS_ITS | Encounter Summary ---
Author Organization [employer] Address [address] [facility] 7t [place] [address] Care Team Providers Care Access Clinician Name Role Phone Jeremy Mae MD Primary Care Prov ider Reason for Visit * Reason Onset Date Comments callback requested 09/28/2024 Encounter Details Date Type Department Care Team (Late st Contact Info) Description 09/28/2024 Telephone [facility] [address] [place] [address] Jeremy Mae MD [address] [place], [place] [phone] callback requested Social History Tobacco Use Types Packs/Day Years [...] encounter Miscellaneous Notes * Telephone Encounter - Clover Smith - 09/28/2024 1:01 PM EST Tc from pt retuning call from 09/24/2024 in regards a letter , pt indicated he will like a callbackdue to waiting on letter. pt informs he needs it soon. Callback number [phone] documented in this encounter Plan of Treatment Not on file documented as of this encounter Visit Diagnoses Not on filedocumented in this encounter Care Teams Access Clinician Relationship Specialty Start Date End Date Jeremy Mae MD [address] [place] [phone] PCP - General Internal Medicine 04/04/20 documented as of this encounter
--- OUTSIDE RECORDS SUMMARY | 2025-08-25 13:14 | XMS_ITS | Encounter Summary ---
Author Organization [employer] Address [address] [facility] 7t [place] [address] Care Team Providers Care Straw Boss Name Role Phone Jeremy Mae MD Primary Care Prov ider Encounter Details Date Type Department Care Team (Latest Contact Info) Description 08/25/2025 Travel Social History Tobacco Use Types Packs/Day Years [...] AM EDT documented as of this encounter Plan of Treatment Not on file documented as of this encounter Visit Diagnoses Not on filedocumented in this encounter Additional Health Concerns Assessment Noted Time PHQ-9 Depression Total Score: 0 07/05/20 25 11:16 AM EDT documented as of this encounter Care Teams Straw Boss Relationship Specialty Start Date End Date Jeremy Mae MD [address] [place] [address] PCP - General Internal Medicine 04/04/20 documented as of this encounter
--- OUTSIDE RECORDS SUMMARY | 2025-08-25 13:14 | XMS_ITS | Encounter Summary ---
Author Organization [employer] Address [address] [facility] [address] [facility] [address] [place] [address] Care Team Providers Care Waste Duster Name Role Phone Jeremy Mae MD Primary Care Prov ider Reason for Visit * Reason Onset Date Comments Nurse Triage 03/10/2025 Encounter Details Date Type Department Care Team (Late st Contact Info) Description 03/10/2025 Telephone [facility] [address], [place] [phone] Jeremy Mae MD [address] [place] [address] Nurse Triage Social History Tobacco Use Types [...] on filedocumented in this encounter Care Teams Waste Duster Relationship Specialty Start Date End Date Jeremy Mae MD [address] [place] [id number] PCP - General Internal Medicine 04/04/20 documented as of this encounter
== END 2025-08-25 11:40 | disposition home or self-care (01) ==
LOC: HO.XRAY 11:39
PROVIDERS: PCP Internal Medicine; Visit Provider Internal Medicine
DX: K59.09 Other constipation (principal)
CPT/HCPCS: 74018

== ENCOUNTER → 2025-08-25 11:45 | Outpatient (BNV) | payer MEDICAID, SELFPAY | PROVIDERS: PCP Internal Medicine; Visit Provider Radiology Diagnostic Radiology | DX: K59.00 Constipation, unspecified (principal) | CPT/HCPCS: 74018 ==